=== PATIENT | male | born 1950 ===

== ENCOUNTER 2025-03-02 09:47 | Emergency (ER) | payer MEDICARE, SELFPAY ==
--- NOTE | ~2025-03-02 | XR_ITS ---
EXAMINATION: XR CHEST CLINICAL INFORMATION: cough COMPARISON: None available. TECHNIQUE: 2 views of the chest were obtained. FINDINGS: Lungs: No focal consolidation. No evidence of pulmonary edema. Pleura: No pleural effusion or pneumothorax. Heart/Mediastinum: No mediastinal widening. Apparent enlargement of the cardiac silhouette with apparent prominence of the left inferior contour could be due to mediastinal fat; this can be confirmed with prior CT exam. Bones/Soft Tissues: No acute findings. XR/XR chest 2V IMPRESSION: No acute abnormality. Electronically signed by: Corrie Draper MD 03/02/2025 10:33 AM EDT
[2025-03-02 10:02] VITALS: BP 150/72; PULSE 76; RESP 18; TEMP 36.9; O2SAT 94; BMI 34.9
--- NOTE | 2025-03-02 10:07 | ED.URI ---
HPI - URI/Sore Throat General Chief Complaint: Upper Respiratory Symptoms Stated Complaint: cough, fever, bodyaches Time Seen by Provider: 03/02/25 09:54 Source: patient Mode of arrival: ambulatory Limitations: no limitations History of Present Illness HPI Narrative: This is a 74 years old male presented to the emergency department with a chief complaint of cough and congestion since Friday (3 days ago) denies any fever chills vomiting diarrhea MD elicited complaint: cough Onset (ago): day(s) (3) Consistency: constant Severity: moderate Description of mucous: yellow and green Exacerbating factors: nothing Relieving factors: nothing Associated symptoms: denies other symptoms Treatments prior to arrival: none Related Data Allergies Allergy/AdvReac Type Severity Reaction Status Date / Time No Known Allergies Allergy Verified 03/02/25 10:04 Review of Systems Constitutional: Constitutional: Reports no additional constitutional complaints ENT: Reports system reviewed and no additional complaints, except as documented Respiratory: Respiratory: Reports chest congestion and Reports cough PMFSH Past Medical History PMFSH Narrative: He denies any major medical problems Social History Social History Advance Directives: No Advance Directives Information Provided: Yes Do you have a plan to hurt others: No Plan Physical Exam Exam: Exam: Patient looks well not toxic-appearing comfortable in the stretcher Vital Signs: Vital Signs: Last Vital Signs Temp 98.5 F 03/02/25 10:02 Pulse 76 03/02/25 10:02 Resp 18 03/02/25 10:02 BP 150/72 H 03/02/25 10:02 Pulse Ox 94 03/02/25 10:02 O2 Del Method Room Air 03/02/25 10:02 BMI result Body Mass Index 34.9 Const: General: cooperative Nutritional Appearance: well nourished Orientation/consciousness: patient oriented x3 Limitations: no limitations HEENT: Head: Yes normal to inspection Ears: hearing grossly normal bilaterally General nose exam: Normal external nose present Throat: Yes posterior oropharynx normal Neck: Neck: Yes normal visual inspection Chest: Chest palpation & inspection: normal inspection of the chest Resp: Effort & Inspection: normal respiratory effort Auscultation: rhonchi Cardio: Jugular venous distension: no JVD Rate: regular rate Rhythm: regular rhythm GI: Inspection: Yes normal to inspection Palpation (GI): Soft to palpation, not firm and nontender Skin: General skin exam: no rashes or lesions noted and elasticity normal Neuro: General: patient oriented x3 Extrem: General: Yes normal to inspection and Yes full ROM Right upper extremity: normal to inspection Course Reevaluation(s) Reevaluation #1: COVID positive chest x-ray normal anticipate discharge Medical Decision Making Medical Decision Making [facility] Narrative: Patient is here with cough congestion looks well we will do a chest x-ray viral panel Differential Diagnosis Differential Diagnoses: The differential diagnosis associated with the presentation includes Pneumonia/bronchitis/call with the/influenza/viral syndrome Admission/Observation Consideration of admission/observation: Escalation of care including admission/observation considered Lab Data MDM Lab Attestation statement: I reviewed the patient's lab results. Labs: Lab Results 03/02/25 Range/Units 10:13 COVID-19 (VIOLET) Positive A (Negative) COVID-19 Clin Com See Note Influenza Type A (BOY) Negative (Negative) Influenza Type B (BOY) Negative (Negative) Influenza A & B Note See Note Independent Interpretation I performed an independent interpretation of an: Plain X-Ray Interpretation: No acute disease Radiology Impression Discussion of test interpretation with radiology: I have reviewed the radiologist's reading. Radiologist Impression: FINDINGS: Lungs: No focal consolidation. No evidence of pulmonary edema. Pleura: No pleural effusion or pneumothorax. Heart/Mediastinum: No mediastinal widening. Apparent enlargement of the cardiac silhouette with apparent prominence of the left inferior contour could be due to mediastinal fat; this can be confirmed with prior CT exam. Bones/Soft Tissues: No acute findings. XR/XR chest 2V IMPRESSION: No acute abnormality. Electronically signed by: Corrie Draper MD 03/02/2025 10:33 AM EDT Dictated By: Corrie Draper MD Signed By: <Electronically signed by Corrie Draper MD in OV> 03/02/25 1033 DD/ 1020 Independent Historian Clinical information obtained from an independent historian. History obtained from or confirmed by: Spouse Discharge Plan Discharge Clinical Impression: COVID-19 Patient Disposition: Home, Self-Care Instructions: COVID-19 (Coronavirus Disease 2019) (ED) Additional Instructions: You tested positive for COVID the drink lots of fluids take ibuprofen or Tylenol for pain or fever rest return if worse Stand Alone Forms: Work/School Release Print Language: Tanzanian
--- NOTE | 2025-03-02 10:24 | PC.NURSE ---
Pt to Xray.
[2025-03-02 10:35] LABS: COVID-19 Test Positive (Negative); IDNOW Serial# 55D5AD1C
[2025-03-02 10:40] LABS: IDNOW Serial# 58CA691E; Influenza B2 Negative (Negative)
[2025-03-02 12:00] VITALS: BP 148/74; PULSE 72; RESP 18; O2SAT 96
[2025-03-02 12:26] VITALS: BP 148/74; PULSE 72; RESP 18; TEMP 36.6; O2SAT 96
--- OUTSIDE RECORDS SUMMARY | 2025-03-02 12:38 | XMS_ITS | Clinical Summary ---
Author Organization [facility] ity Address [address] [place] [address] Care Team Providers Care Die Operator Name Role Phone Unavailable Primary Care Provider Unavailabl e Social History Tobacco Use Types Packs/Day Years Used Date Smoking Tobacco: Never Assessed Sex and Gender Information Value Date Recorded Sex Assigned at Not on file Legal Sex Male 7:05 AM EST Gender Identity Not on file Sexual Orientation Not on file Plan of Treatment Health Maintenance Due Date Last Done Comments DTaP,Tdap,and Td Vaccines (1 - Tdap) 11/13/1970 Pneumococcal Vaccine: 50+ Ye ars (1 of 1 - PCV) 11/13/2001 Zoster Vaccines (1 of 2) 11/13/2001 Depression Screening 05/05/2024 COVID-19 Vaccine (1 - 2023-2 5 season) 2025 Influenza Vaccine (#1) 2025 RSV Immunization Adult Patie nts (1 - 1-dose 75+ series) 11/13/2026 HIB Vaccines Aged Out No longer eligi ble based on patient's age to complete this topic HPV Vaccines Aged Out No longer eligi ble based on patient's age to complete this topic Hepatitis A Vaccines Aged Out No long er eligible based on patient's age to complete this topic Hepatitis B Vaccines Aged Out No long er eligible based on patient's age to complete this topic IPV Vaccines Aged Out No longer eligi ble based on patient's age to complete this topic MMR Vaccines Aged Out No longer eligi ble based on patient's age to complete this topic Meningococcal ACWY Vaccine Aged Out N o longer eligible based on patient's age to complete this topic Meningococcal B Vaccine Aged Out No l onger eligible based on patient's age to complete this topic RSV Immunization Patients Un yanique 20 months Aged Out No longer eligible b ased on patient's age to complete this topic Varicella Vaccines Aged Out No longer eligible based on patient's age to complete this topic
== END 2025-03-02 12:29 | disposition home or self-care (01) ==
PROVIDERS: Emergency Provider Emergency Medicine
DX: U07.1 COVID-19 (principal); R05.9 Cough, unspecified; R09.89 Other specified symptoms and signs involving the circulatory and respiratory systems
CPT/HCPCS: 71046; 87502; 87635; 99283

== ENCOUNTER → 2025-03-02 10:07 | Outpatient (BNV) | payer MEDICARE, SELFPAY | PROVIDERS: Emergency Provider Emergency Medicine; Visit Provider Radiology Body Imaging | DX: R05.9 Cough, unspecified (principal) | CPT/HCPCS: 71046 ==